=== PATIENT | female | born 1950 | race Caucasian/White ===

== ENCOUNTER 2022-05-21 14:56 | Outpatient (CLI) | payer MEDICARE, BC, SELFPAY | END 2022-05-21 14:57 | disposition home or self-care (01) | LOC: NFLDREF 14:56 | PROVIDERS: PCP Internal Medicine; Visit Provider Family Medicine | DX: R39.9 Unspecified symptoms and signs involving the genitourinary system (principal); N39.0 Urinary tract infection, site not specified; R39.89 Other symptoms and signs involving the genitourinary system | CPT/HCPCS: 87086; 87186 ==

== ENCOUNTER 2022-06-25 07:35 | Outpatient (CLI) | payer MEDICARE, BC, SELFPAY ==
[2022-06-25 14:04] LABS: Chloride* 105 mmol/L (96-114); Potassium* 4.2 mmol/L (3.6-5.1); Sodium* 139 mmol/L (135-149)
[2022-06-25 14:06] LABS: Bilirubin Total* 0.5 mg/dL (0.1-1.5); Carbon Dioxide* 30 mmol/L (20-32); Cholesterol* 165 mg/dL (90-199); Creatinine* 0.6 mg/dL (0.5-1.5); Estimated Glomerular Filt Rate 96 ml/min; Total Protein* 6.4 g/dL (6.0-8.3)
[2022-06-25 14:07] LABS: Alanine Aminotransferase* 17 U/L (4-35); Alkaline Phosphatase* 93 U/L (40-150); Aspartate Amino Transferase* 26 U/L (12-35); Blood Urea Nitrogen* 11 mg/dL (7-30); Calcium* 8.9 mg/dL (8.4-10.6); Glucose* 159 mg/dL (60-115); HDL Cholesterol* 62 mg/dL (>=50); LDL Cholesterol Calculated 86 mg/dL (<100); Triglycerides* 86 mg/dL (40-149)
== END 2022-06-25 07:36 | disposition home or self-care (01) ==
PROVIDERS: PCP Internal Medicine; Visit Provider Internal Medicine
DX: E11.9 Type 2 diabetes mellitus without complications (principal); E78.5 Hyperlipidemia, unspecified
CPT/HCPCS: 80053; 80061

== ENCOUNTER 2022-07-23 15:01 | Outpatient (CLI) | payer MEDICARE, BC, SELFPAY ==
--- NOTE | 2022-07-23 15:20 | CRLHL7_ITS ---
For Patients: As a result of the Century Cures Act, medical imaging exams and procedure reports are released immediately into your electronic medical record. You may view this report before your referring provider. If you have questions, please contact your health care provider. BILATERAL SCREENING MAMMOGRAM WITH COMPUTER-AIDED DETECTION AND TOMOSYNTHESIS TECHNIQUE: CC and MLO views were obtained. These mammographic images have been obtained using full-field digital technique. These mammographic images were interpreted with the benefit of computer-aided detection. Breast Tomosynthesis was used in this interpretation. COMPARISON FILM: 07/22/21, 08/06/20, 07/25/19. FINDINGS: There are scattered areas of fibroglandular density IMPRESSION: There is no radiographic evidence for malignancy. ASSESSMENT: BI-RADS Category 1: Negative RECOMMENDATION: Routine screening mammogram in 1 year. A lay language report of this examination will be provided to the patient. Drake Wiggins M.D. Diagnostic Radiologist [email or web address] GENIE/Dictated by: Drake Wiggins MD @ 07/27/2022 9:17:00 AM (Electronically Signed)
== END 2022-07-23 15:02 | disposition home or self-care (01) ==
LOC: MAMMO 15:03
PROVIDERS: PCP Internal Medicine; Visit Provider Internal Medicine
DX: Z12.31 Encounter for screening mammogram for malignant neoplasm of breast (principal)
CPT/HCPCS: 77063; 77067

== ENCOUNTER 2022-07-29 08:02 | Outpatient (CLI) | payer MEDICARE, BC, SELFPAY ==
--- OUTSIDE RECORDS SUMMARY | 2022-07-29 08:05 | XMS_ITS | Clinical Summary ---
:1950 Author Organization [employer] [facility] [place] [address] Care Team Providers Name Role Phone Mone Cowart MD Primary Care Provider Allergies Active Allergy Reactions Severity Noted Date Comments Sulfa (Sulfonamide Antibiotics) Rash Medium 0 Medications Medication Sig Dispensed Refills Start Date End Date Status simvastatin (ZOCOR) 20 Take 20 mg by 0 Active mg tablet mouth at bedtime. metFORMIN (GLUCOPHAGE) Take 500 mg by 0 Active 500 mg tablet mouth 2 times daily with meals. triamcinolone Apply topically to 0 Active (ARISTOCORT) 0.1 % affected area(s) 2 ointment times daily. estradioL (ESTRACE) Insert 1 g into 0 Active 0.1 mg/g vaginal cream the vagina at bedtime. Cranberry 500 mg cap Take 1,000 mg by 0 Active mouth once daily. aspirin chewable 81 mg Take 81 mg by 0 Active chewable tablet mouth once daily with a meal. calcium Take 1 tablet by 0 Act ashtyn carbonate-cholecalcife mouth once daily rol, 600mg-200 units, with a meal. (CALCIUM 600 + D,3,) tablet atropine (ISOPTO Place 1 Drop into 5 mL 0 08/15/2020 Active ATROPINE) 1 % left eye 2 times ophthalmic solution daily. erythromycin Place 1 Strip of 3.5 g 0 08/15/2020 Active ophthalmic ointment ointment into the 0.5% inside of lower left eye lid at bedtime. ofloxacin 0.3 % Place 1 Drop into 5 mL 0 08/15/2020 Active ophthalmic (OCUFLOX) left eye 4 times 0.3 % ophthalmic daily. solution prednisoLONE acetate Place 1 Drop into 15 mL 0 08/15/2020 Active 1% ophthalmic left eye 4 times (ECONOPRED PLUS, PRED daily. SHAKE WELL. FORTE, OMNIPRED) suspension Active Problems Not on file Social History Tobacco Use Types Packs/Day Years Used Date Never Smoker Smokeless Tobacco: Never Used Alcohol Use Standard Drinks/Week Comments Yes 0 (1 standard drink = 0.6 oz pure occ= a t the most 1 drink a week alcohol) Alcohol Habits Answer Date Recorded How often do you have a drink Not asked containing alcohol? How many drinks containing alcohol do Not asked you have on a typical day when you are drinking? How often do you have six or more Not asked drinks on one occasion? Comment: occ= at the most 1 drink a week 08/13/20 20 Sex Assigned at Date Recorded Not on file Obstetrics History Last Filed Vital Signs Vital Sign Reading Time Taken Comments Blood Pressure 142/73 08/15/2020 9:06 AM CDT Pulse 62 08/15/2020 9:06 AM CDT Temperature 36.1 ??C (97 ??F) 08/15/2020 6:30 AM CDT Respiratory Rate 16 08/15/2020 9:06 AM CDT Oxygen Saturation 97% 08/15/2020 9:06 AM CDT Inhaled Oxygen Concentration - - Weight 77.6 kg (171 lb) 08/13/2020 2:34 PM CDT Height 174 cm (5' 8.5) 08/13/2020 2:34 PM CDT Body Mass Index 25.62 08/13/2020 2:34 PM CDT Plan of Treatment Not on file Results Not on filefrom Last 3 Months Insurance Payer Benefit Plan / Subscriber ID Effective Dates Phone Addre ss Type Group MEDICARE PART A MEDICARE PART A [id number] 2016-Presen ATTN: CLAIMS - HB USE ONLY HB ONLY t [address] [place] [address] MEDICARE PART B MEDICARE PART B [id number] 2016-Presen ATTN: CLAIMS - HB USE ONLY HB ONLY t [address] [place] [address] BLUE CROSS BLUE CROSS OF [id number] 2019-Presen [address] [place], [place] [address] Care Teams Padder Relationship Specialty Start Date End Date Mone Cowart MD PCP - General Internal Medicine 08/06/201999 [place] [address]
--- NOTE | 2022-07-29 08:15 | CRLHL7_ITS ---
For Patients: As a result of the Cures Act, medical imaging exams and procedure reports are released immediately into your electronic medical record. You may view this report before your referring provider. If you have questions, please contact your health care provider. CLINICAL HISTORY: URINARY TRACT INFECTION COMPARISON: none TECHNIQUE: Novak scale and color Doppler images were acquired of the kidneys and urinary bladder. FINDINGS: Sonographic images reveal a symmetric appearance of the kidneys. Mild bilateral hydronephrosis. No solid mass. Simple cyst mid left kidney laterally measuring 3.3 x 3.3 x 3.3 cm. The right kidney measures 10.9cm in length and the left kidney measures 11.8cm in length. The renal cortex appears of normal thickness. The urinary bladder appears normal. Color Doppler images reveal a normal appearance of both ureteral jets. There is no evidence of bladder calculi or diverticula. IMPRESSION: Mild bilateral hydronephrosis. Dictated by Drake Wiggins MD @ 07/29/2022 9:20:34 AM (Electronically Signed)
== END 2022-07-29 08:03 | disposition home or self-care (01) ==
LOC: US 08:04
PROVIDERS: PCP Internal Medicine; Visit Provider Urology
DX: N39.0 Urinary tract infection, site not specified (principal); N13.30 Unspecified hydronephrosis
CPT/HCPCS: 76775

== ENCOUNTER 2022-12-27 07:40 | Outpatient (CLI) | payer MEDICARE, SELFPAY ==
[2022-12-27 09:56] LABS: Creatinine Urine 129.5 mg/dL
[2022-12-27 10:00] LABS: Microalbumin Creatinine Ratio 10 mg/g (0-30); Microalbumin Urine 2 mg/dL
== END 2022-12-27 07:41 | disposition home or self-care (01) ==
PROVIDERS: PCP Internal Medicine; Visit Provider Internal Medicine
DX: E11.9 Type 2 diabetes mellitus without complications (principal); E78.5 Hyperlipidemia, unspecified
CPT/HCPCS: 82043; 82570

== ENCOUNTER 2023-07-28 14:49 | Outpatient (CLI) | payer MEDICARE, SELFPAY ==
--- NOTE | 2023-07-28 15:00 | CRLHL7_ITS ---
For Patients: As a result of the Century Cures Act, medical imaging exams and procedure reports are released immediately into your electronic medical record. You may view this report before your referring provider. If you have questions, please contact your health care provider. BILATERAL SCREENING MAMMOGRAM WITH COMPUTER-AIDED DETECTION AND TOMOSYNTHESIS TECHNIQUE: CC and MLO views were obtained. These mammographic images have been obtained using full-field digital technique. These mammographic images were interpreted with the benefit of computer-aided detection. Breast Tomosynthesis was used in this interpretation. COMPARISON FILM: 07/23/22, 07/22/21, 08/06/20. FINDINGS: The breasts are almost entirely fatty IMPRESSION: There is no radiographic evidence for malignancy. ASSESSMENT: BI-RADS Category 1: Negative RECOMMENDATION: Routine screening mammogram in 1 year. A lay language report of this examination will be provided to the patient. Drake Wiggins M.D. Diagnostic Radiologist [email or web address] GENIE/Dictated by: Drake Wiggins MD @ 07/29/2023 8:48:00 AM (Electronically Signed)
== END 2023-07-28 14:50 | disposition home or self-care (01) ==
LOC: MAMMO 14:50
PROVIDERS: PCP Internal Medicine; Visit Provider Internal Medicine
DX: Z12.31 Encounter for screening mammogram for malignant neoplasm of breast (principal)
CPT/HCPCS: 77063; 77067

== ENCOUNTER 2023-09-30 07:50 | Outpatient (CLI) | payer MEDICARE, SELFPAY | END 2023-09-30 07:51 | disposition home or self-care (01) | LOC: NFLDREF 10-04 23:00 | PROVIDERS: PCP Internal Medicine; Referring Provider Internal Medicine; Visit Provider Internal Medicine | DX: E11.9 Type 2 diabetes mellitus without complications (principal); E78.5 Hyperlipidemia, unspecified; R51.9 Headache, unspecified; R19.7 Diarrhea, unspecified | CPT/HCPCS: 80053; 80061; 82043; 82570 ==

== ENCOUNTER 2023-11-15 19:40 | Outpatient (CLI) | payer MEDICARE, SELFPAY | END 2023-11-15 19:41 | disposition home or self-care (01) | LOC: SLEEP 19:40 | PROVIDERS: PCP Internal Medicine; Visit Provider Internal Medicine | DX: G47.33 Obstructive sleep apnea (adult) (pediatric) (principal); E66.9 Obesity, unspecified | CPT/HCPCS: 95806 ==

== ENCOUNTER 2024-03-26 20:15 | Outpatient (CLI) | payer MEDICARE, SELFPAY ==
--- OUTSIDE RECORDS SUMMARY | 2024-03-26 20:18 | XMS_ITS | Referral Summary ---
Author Name Unknown Organization [facility] Address [address] [place] [address] Care Team Providers Care Skilled Nursing Professional Name Role Phone No Ref-Primary, Physician Primary Care Provider Allergies Active Allergy Reactions Criticality Noted Date Comments Latex 07/26/2000 Sulfa Antibiotics 10/20/1999 Medications Medication Sig Dispensed Refills Start Date End Date Status CEPHALEXIN 500 MG OR CAPSIndications:Sebaceous cyst one bid 20 0 11/06/2007 Active Active Problems Problem Noted Date Diagnosed Date Family history of diabetes mellitus Family history of malignant neoplasm of breast Immunizations Name Administration Dates Next Due TD,PF 7+ (Tenivac) 09/21/1997 TDAP Vaccine (Adacel) 11/06/2007 Social History Tobacco Use Types Packs/Day Years Used Date Smoking Tobacco: Never Alcohol Use Standard Drinks/Week Comments Yes 0.4 (1 standard drink = 0.6 oz p ure alcohol) Adolescent Education Answer Date Record ed Getting School Help Needed Not on file 08/27 Sex and Gender Information Value Date Recorded Sex Assigned at Not on file Gender Identity Not on file Sexual Orientation Not on file Last Filed Vital Signs Vital Sign Reading Time Taken Comments Blood Pressure 126/70 01/30/2022 12:32 PM CONCRETE BLOCK MOLDER Pulse 76 01/30/2022 12:32 PM CONCRETE BLOCK MOLDER Temperature 36.6 ??C (97.8 ??F) 01/30/2022 12:[address] Respiratory Rate 16 01/30/2022 12:32 PM CONCRETE BLOCK MOLDER Oxygen Saturation 99% 01/30/2022 12:32 PM CONCRETE BLOCK MOLDER Inhaled Oxygen Concentration - - Weight 77.3 kg (170 lb 8 oz) 01/30/2022 12:32 PM CONCRETE BLOCK MOLDER Height 170.2 cm (5' 7) 11/15/2007 11:30 AM CONCRETE BLOCK MOLDER Body Mass Index - - Plan of Treatment Not on file Procedures Procedure Name Priority Date/Time Associated Diagnosis Comments C MAMMOGRAM, SCREENING Routine 09/16/2005 11:33 AM CDT SIGMOIDOSCOPY,DIAGN OSTIC Routine 07/05/2000 Rectal & Anal Hemorrhage from Last 3 Months or Most Recently Relevant to Health Maintenance Results * MAMMOGRAM, SCREENING (09/16/2005 11:33 AM CDT) Anatomical Region Laterality Modality Other 09/16/2005 11:3 3 AM CDT Impressions 09/17/2005 7:31 AM CDT SCREENING MAMMOGRAM, BILATERAL BREAST SYMPTOMS: None PREVIOUS MAMMOGRAPHY: Comparison with [facility] dated 06/01/01 and 08/07/04. ??There is no significant change. BREAST PARENCHYMA: ??Heterogeneously dense. IMPRESSION: CATEGORY 1 Negative TECHNOLOGIST INITIALS: SRK Uri Rolon MD SPECIAL IMAGING STUD IES * SIGMOIDOSCOPY,DIAGNOSTIC (07/05/2000) flex BFP RAD Impressions BFP RAD - 07/05/2000 Flex Sig completed to 35 cm, no evidence of tumors,polyps, or other abnormalities. Skyler London MD PROCEDURES BFP RAD from Last 3 Months or Most Recently Relevant to Health Maintenance Care Teams Skilled Nursing Professional Relationship Specialty Start Date End Date No Ref-Primary, Physician PCP - General 01/30/22
--- OUTSIDE RECORDS SUMMARY | 2024-03-26 20:18 | XMS_ITS | Clinical Summary ---
Author Name Unknown Organization [facility] Address [address] [place] [address] Care Team Providers Care Waiter/Waitress Informal Name Role Phone No Ref-Primary, Physician Primary [...] 7+ (Tenivac) 09/21/1997 TDAP Vaccine (Adacel) 11/06/2007 Family History Medical History Relation Comments Diabetes Father Heart Disease Father Cancer Maternal Grandmother breast Alzheimer Disease No family hx of Relation Status Comments Brother 1 Alive Brother 2 Alive Brother 3 Alive Brother 4 Alive Brother 5 Alive Brother 6 Alive Father Alive Maternal Grandmother Mother Alive Sister 1 Alive Sister 2 Alive Sister 3 Alive Sister 4 Alive Sister 5 Alive Social History Tobacco Use Types Packs/Day Years [...] Comments Blood Pressure 126/70 01/30/2022 12:32 PM BLEND TECHNICIAN Pulse 76 01/30/2022 12:32 PM BLEND TECHNICIAN Temperature 36.6 ??C (97.8 ??F) 01/30/2022 12:[address] Respiratory Rate 16 01/30/2022 12:32 PM BLEND TECHNICIAN Oxygen Saturation 99% 01/30/2022 12:32 PM BLEND TECHNICIAN Inhaled Oxygen Concentration - - Weight 77.3 kg (170 lb 8 oz) 01/30/2022 12:32 PM BLEND TECHNICIAN Height 170.2 cm (5' 7) 11/15/2007 11:30 AM BLEND TECHNICIAN Body Mass Index - - Plan of Treatment Health Maintenance Due Date Last Done Comments ADVANCE CARE PLANNING 1950 ANNUAL REVIEW OF HM ORDERS 1950 CT COLONOGRAPHY 1950 DEXA 1950 FIT 1950 GLUCOSE 1950 sDNA (Cologuard) 1950 COLONOSCOPY 1961 HEPATITIS C SCREENING 1969 LIPID 1991 COLORECTAL CANCER SCREENING 07/05/2005 FLEX SIG 07/05/2005 07/05/2000 MAMMO SCREENING 09/16/2007 09/16/2005, 08/07/2004 RSV VACCINE ( & 60+) (1 - 1-dose 60+ series) 2011 FALL RISK ASSESSMENT 01/26/2016 MEDICARE ANNUAL WELLNESS VISIT 01/26/2016 COVID-19 Vaccine ( - season) 2023 10/02/2021, 02/13/2021, 01/16/2021 PHQ-2 (once per calendar year) 2023 INFLUENZA VACCINE (Season Ended) 2024 08/10/2021, 08/12/2020, 09/03/2019, Additional history exists DTAP/TDAP/TD IMMUNIZATION (4 - Td or Tdap) 06/10/2030 06/10/2020, 03/12/2010, 11/06/2007, Additional history exists Pneumococcal Vaccine: 65+ Years Completed 02/03/2017, 02/02/2016 ZOSTER IMMUNIZATION Completed 04/10/2019, 12/19/2018, 06/16/2011 HPV IMMUNIZATION Aged Out No longer e ligible based on patient's age to complete this topic IPV IMMUNIZATION Aged Out No longer e ligible based on patient's age to complete this topic MENINGITIS IMMUNIZATION Aged Out No l onger eligible based on patient's age to complete this topic RSV MONOCLONAL ANTIBODY Aged Out No l onger eligible based on patient's age to complete this topic Procedures Procedure Name Priority Date/Time Associated Diagnosis [...] BREAST SYMPTOMS: None PREVIOUS MAMMOGRAPHY: Comparison with [facility] dated 06/01/01 and 08/07/04. ??There is no [...] Recently Relevant to Health Maintenance Care Teams Waiter/Waitress Informal Relationship Specialty Start Date End Date No Ref-Primary, Physician PCP - General 01/30/22
--- OUTSIDE RECORDS SUMMARY | 2024-03-26 20:18 | XMS_ITS | Clinical Summary ---
Author Name Unknown Organization [facility] Address [place], [place] [address] Care Team Providers Care Home Advisor Name Role Phone Mone Cowart MD Primary Care Provider [phone]- [phone] Allergies Active Allergy Reactions Criticality Noted Date Comments Sulfa (Sulfonamide Antibiotics) Rash Medium 07/23 Medications Medication Sig Dispensed Refills Start Date End Date Status simvastatin (ZOCOR) 20 mg tablet Take 20 mg by mouth at bedtime. Active metFORMIN (GLUCOPHAGE) 500 mg tablet Take 500 mg by mouth 2 times daily with meals. Active triamcinolone (ARISTOCORT) 0.1 % ointment Apply topically to affected area(s) 2 times daily. Active estradioL (ESTRACE) 0.1 mg/g vaginal cream Insert 1 g into the vagina at bedtime. Active Cranberry 500 mg cap Take 1,000 mg by mouth once daily. Active aspirin chewable 81 mg chewable tablet Take 81 mg by mouth once daily with a meal. Active calcium carbonate-cholecalcif jayden, 600mg-200 units, (CALCIUM 600 + D,3,) tablet Take 1 tablet by mouth once daily with a meal. Active atropine (ISOPTO ATROPINE) 1 % ophthalmic solution Place 1 Drop into left eye 2 times daily. 5 mL 08/15/2020 Active erythromycin ophthalmic ointment 0.5% Place 1 Strip of ointment into the inside of lower left eye lid at bedtime. 3.5 g 08/15/2020 Active ofloxacin 0.3 % ophthalmic (OCUFLOX) 0.3 % ophthalmic solution Place 1 Drop into left eye 4 times daily. 5 mL 08/15/2020 Active prednisoLONE acetate 1% ophthalmic (ECONOPRED PLUS, PRED FORTE, OMNIPRED) suspension Place 1 Drop into left eye 4 times daily. SHAKE WELL. 15 mL 08/15/2020 Active Social History Tobacco Use Types Packs/Day Years Used Date Smoking Tobacco: Never Smokeless Tobacco: Never Alcohol Use Standard Drinks/Week Comments Yes 0 (1 standard drink = 0.6 oz pure alcohol) occ= at the most 1 drink a week Sex and Gender Information Value Date Recorded Sex Assigned at Not on file Gender Identity Not on file Sexual Orientation Not on file Obstetrics History Last Filed [...] CDT Plan of Treatment Not on file Care Teams Home Advisor Relationship Specialty Start Date End Date Mone Cowart MD [address] [place] [id number] PCP - General Internal Medicine 08/06/20
== END 2024-03-26 20:16 | disposition home or self-care (01) ==
LOC: SLEEP 20:16
PROVIDERS: PCP Internal Medicine; Visit Provider Internal Medicine
DX: G47.33 Obstructive sleep apnea (adult) (pediatric) (principal)
CPT/HCPCS: 95811

== ENCOUNTER 2024-05-30 17:45 | Outpatient (REF) | payer MEDICARE, SELFPAY ==
--- OUTSIDE RECORDS SUMMARY | 2024-05-30 17:47 | XMS_ITS | Clinical Summary ---
Author Organization [facility] Address [address] [place] [address] Care Team Providers Care Mining Captain Name Role Phone No Ref-Primary, Physician Primary [...] Comments Blood Pressure 126/70 01/30/2022 12:32 PM ORGANISATIONAL PSYCHOLOGIST Pulse 76 01/30/2022 12:32 PM ORGANISATIONAL PSYCHOLOGIST Temperature 36.6 ??C (97.8 ??F) 01/30/2022 12:[address] Respiratory Rate 16 01/30/2022 12:32 PM ORGANISATIONAL PSYCHOLOGIST Oxygen Saturation 99% 01/30/2022 12:32 PM ORGANISATIONAL PSYCHOLOGIST Inhaled Oxygen Concentration - - Weight 77.3 kg (170 lb 8 oz) 01/30/2022 12:32 PM ORGANISATIONAL PSYCHOLOGIST Height 170.2 cm (5' 7) 11/15/2007 11:30 AM ORGANISATIONAL PSYCHOLOGIST Body Mass Index - - Plan of [...] MEDICARE ANNUAL WELLNESS VISIT 01/26/2016 COVID-19 Vaccine (4 - 2022- season) 2023 10/02/2021, 02/13/2021, 01/16/2021 PHQ-2 (once per calendar year) 2023 INFLUENZA VACCINE (#1) 2024 , 08/12/2020, 09/03/2019, Additional history exists DTAP/TDAP/TD IMMUNIZATION [...] BREAST SYMPTOMS: None PREVIOUS MAMMOGRAPHY: Comparison with [facility] dated 06/01/01 and 08/07/04. ??There is no [...] Recently Relevant to Health Maintenance Care Teams Mining Captain Relationship Specialty Start Date End Date No Ref-Primary, Physician PCP - General 01/30/22
--- OUTSIDE RECORDS SUMMARY | 2024-05-30 17:48 | XMS_ITS | Referral Summary ---
Author Organization [facility] Address [address] [place] [address] Care Team Providers Care Wire Stretcher Name Role Phone No Ref-Primary, Physician Primary [...] Comments Blood Pressure 126/70 01/30/2022 12:32 PM FINISHING RANGE FEEDER Pulse 76 01/30/2022 12:32 PM FINISHING RANGE FEEDER Temperature 36.6 ??C (97.8 ??F) 01/30/2022 12:[address] Respiratory Rate 16 01/30/2022 12:32 PM FINISHING RANGE FEEDER Oxygen Saturation 99% 01/30/2022 12:32 PM FINISHING RANGE FEEDER Inhaled Oxygen Concentration - - Weight 77.3 kg (170 lb 8 oz) 01/30/2022 12:32 PM FINISHING RANGE FEEDER Height 170.2 cm (5' 7) 11/15/2007 11:30 AM FINISHING RANGE FEEDER Body Mass Index - - Plan of [...] BREAST SYMPTOMS: None PREVIOUS MAMMOGRAPHY: Comparison with [facility] dated 06/01/01 and 08/07/04. ??There [...] Recently Relevant to Health Maintenance Care Teams Wire Stretcher Relationship Specialty Start Date End Date No Ref-Primary, Physician PCP - General 01/30/22
--- OUTSIDE RECORDS SUMMARY | 2024-05-30 17:48 | XMS_ITS | Clinical Summary ---
Author Organization [facility] Address [place] [address] Care Team Providers Care Supervisor Metal Cans Name Role Phone Mone Cowart MD Primary Care Provider +1- [phone] Allergies Active Allergy Reactions Criticality Noted Date [...] of Treatment Not on file Care Teams Supervisor Metal Cans Relationship Specialty Start Date End Date Mone Cowart MD [address] [place] [address] [phone] (work) PCP - General Internal Medicine 08/06/20
== END 2024-05-30 17:46 | disposition home or self-care (01) ==
LOC: NPINS 17:45
PROVIDERS: PCP Internal Medicine; Visit Provider Urology
DX: N39.0 Urinary tract infection, site not specified (principal)
CPT/HCPCS: 87077; 87086; 87186

== ENCOUNTER 2024-09-12 15:01 | Outpatient (CLI) | payer MEDICARE, SELFPAY ==
--- OUTSIDE RECORDS SUMMARY | 2024-09-12 15:06 | XMS_ITS | Referral Summary ---
Author Organization [facility] Address [address] [place] [address] Care Team Providers Care Order Filler Name Role Phone No Ref-Primary, Physician Primary Care Provider Allergies Active Allergy Reactions Criticality Noted Date Comments Latex 07/26/2000 Sulfa Antibiotics 10/20/1999 Medications CEPHALEXIN 500 MG OR CAPSIndications: Sebaceous cyst one bid 20 0 11/06/2007 Active [...] School Help Needed Not on file 08/27 Comments No Sex and Gender Information Value Date Recorded Sex Assigned at Not on file Legal Sex Female 2:58 AM PROOFSHEET CORRECTOR Gender Identity Not on file Sexual Orientation Not on file 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 file Not on file Not on file Last Filed Vital Signs Vital Sign Reading Time Taken Comments Blood Pressure 126/70 01/30/2022 12:32 PM PROOFSHEET CORRECTOR Pulse 76 01/30/2022 12:32 PM PROOFSHEET CORRECTOR Temperature 36.6 ??C (97.8 ??F) 01/30/2022 12:[address] Respiratory Rate 16 01/30/2022 12:32 PM PROOFSHEET CORRECTOR Oxygen Saturation 99% 01/30/2022 12:32 PM PROOFSHEET CORRECTOR Inhaled Oxygen Concentration - - Weight 77.3 kg (170 lb 8 oz) 01/30/2022 12:32 PM PROOFSHEET CORRECTOR Height 170.2 cm (5' 7) 11/15/2007 11:30 AM PROOFSHEET CORRECTOR Body Mass Index - - Plan of [...] BREAST SYMPTOMS: None PREVIOUS MAMMOGRAPHY: Comparison with [facility] dated 06/01/01 and 08/07/04. ??There is no significant change. BREAST PARENCHYMA: ??Heterogeneously dense. IMPRESSION: CATEGORY 1 Negative TECHNOLOGIST INITIALS: SRK us Uri Rolon MD SPECIAL IMAGING STUDIES Edite d * SIGMOIDOSCOPY,DIAGNOSTIC (07/05/2000) flex BFP RAD Impressions BF RAD - 07/05/2000 Flex Sig completed to 35 cm, no evidence of tumors,polyps, or other abnormalities. us Skyler London MD PROCEDURES Final Resu lt BFP RAD from Last 3 Months or Most Recently Relevant to Health Maintenance Insurance [place]ARE [place] Care Teams Order Filler Relationship Specialty Start Date End Date No Ref-Primary, Physician PCP - General 01/30/22
--- OUTSIDE RECORDS SUMMARY | 2024-09-12 15:06 | XMS_ITS | Clinical Summary ---
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 Not on file Not on file Last Filed Vital Signs Vital Sign Reading Time Taken Comments Blood Pressure 126/70 01/30/2022 12:32 PM CASTING MACHINE ADJUSTER Pulse 76 01/30/2022 12:32 PM CASTING MACHINE ADJUSTER Temperature 36.6 ??C (97.8 ??F) 01/30/2022 12:[address] Respiratory Rate 16 01/30/2022 12:32 PM CASTING MACHINE ADJUSTER Oxygen Saturation 99% 01/30/2022 12:32 PM CASTING MACHINE ADJUSTER Inhaled Oxygen Concentration - - Weight 77.3 kg (170 lb 8 oz) 01/30/2022 12:32 PM CASTING MACHINE ADJUSTER Height 170.2 cm (5' 7) 11/15/2007 11:30 AM CASTING MACHINE ADJUSTER Body Mass Index - - Plan of Treatment Health Maintenance Due Date Last Done Comments ADVANCE CARE PLANNING 1950 ANNUAL REVIEW OF HM ORDERS 1950 CT COLONOGRAPHY 1950 DEXA 1950 FIT 1950 GLUCOSE 1950 sDNA (Cologuard) 1950 COLONOSCOPY 1961 HEPATITIS C SCREENING 1969 LIPID 1991 COLORECTAL CANCER SCREENING 07/05/2005 FLEX SIG 07/05/2005 07/05/2000 MAMMO SCREENING 09/16/2007 09/16/2005, 08/07/2004 FALL RISK ASSESSMENT 01/26/2016 MEDICARE ANNUAL WELLNESS VISIT 01/26/2016 PHQ-2 (once per calendar year) 2023 COVID-19 Vaccine ( - season) 2024 10/02/2021, 02/13/2021, 01/16/2021 INFLUENZA VACCINE (#1) 2024 , 08/12/2020, 09/03/2019, Additional history exists RSV VACCINE (1 - 1-dose 75+ series) 2026 DTAP/TDAP/TD IMMUNIZATION (4 - Td or Tdap) [...] BREAST SYMPTOMS: None PREVIOUS MAMMOGRAPHY: Comparison with [facility] dated 06/01/01 and 08/07/04. ??There is no significant change. BREAST PARENCHYMA: ??Heterogeneously dense. IMPRESSION: CATEGORY 1 Negative TECHNOLOGIST INITIALS: SRK Uri Rolon MD SPECIAL IMAGING STUDIES Edite d * SIGMOIDOSCOPY,DIAGNOSTIC (07/05/2000) flex BFP RAD Impressions BFP RAD - 07/05/2000 Flex Sig completed to 35 cm, no evidence of tumors,polyps, or other abnormalities. us Skyler London MD PROCEDURES Final Resu lt BFP RAD from Last 3 Months or Most Recently Relevant to Health Maintenance Insurance MEDICARE [facility] MEDICARE SUPPLEMENT Care Teams Hand Assembler For Puller Over Relationship Specialty Start Date End Date No Ref-Primary, Physician PCP - General 01/30/22
--- NOTE | 2024-09-12 15:20 | CRLHL7_ITS ---
For Patients: As a result of the Century Cures Act, medical imaging exams and procedure reports are released immediately into your electronic medical record. You may view this report before your referring provider. If you have questions, please contact your health care provider. BILATERAL SCREENING MAMMOGRAM WITH COMPUTER-AIDED DETECTION AND TOMOSYNTHESIS TECHNIQUE: CC and MLO views were obtained. These mammographic images have been obtained using full-field digital technique. These mammographic images were interpreted with the benefit of computer-aided detection. Breast Tomosynthesis was used in this interpretation. COMPARISON FILM: 07/28/23, 07/23/22, 07/22/21. FINDINGS: There are scattered areas of fibroglandular density IMPRESSION: There is no radiographic evidence for malignancy. ASSESSMENT: BI-RADS Category 1: Negative RECOMMENDATION: Routine screening mammogram in 1 year. A lay language report of this examination will be provided to the patient. Drake Wiggins M.D. Diagnostic Radiologist [email or web address] GENIE/Dictated by: Drake Wiggins MD @ 09/14/2024 9:53:00 AM (Electronically Signed)
== END 2024-09-12 15:02 | disposition home or self-care (01) ==
LOC: MAMMO 15:02
PROVIDERS: PCP Internal Medicine; Visit Provider Internal Medicine
DX: Z12.31 Encounter for screening mammogram for malignant neoplasm of breast (principal)
CPT/HCPCS: 77063; 77067

== ENCOUNTER 2024-10-09 07:35 | Outpatient (CLI) | payer MEDICARE, SELFPAY ==
--- OUTSIDE RECORDS SUMMARY | 2024-10-12 21:17 | XMS_ITS | Clinical Summary ---
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 Not on file Not on file Not on file Last Filed Vital Signs Vital Sign Reading Time Taken Comments Blood Pressure 126/70 01/30/2022 12:32 PM WAGE HAND Pulse 76 01/30/2022 12:32 PM WAGE HAND Temperature 36.6 C (97.8 F) 01/30/2022 12:32 PM WAGE HAND Respiratory Rate 16 01/30/2022 12:32 PM WAGE HAND Oxygen Saturation 99% 01/30/2022 12:32 PM WAGE HAND Inhaled Oxygen Concentration - - Weight 77.3 kg (170 lb 8 oz) 01/30/2022 12:32 PM WAGE HAND Height 170.2 cm (5' 7) 11/15/2007 11:30 AM WAGE HAND Body Mass Index - - Plan of [...] BREAST SYMPTOMS: None PREVIOUS MAMMOGRAPHY: Comparison with [facility] dated 06/01/01 and 08/07/04. There is no significant change. BREAST PARENCHYMA: Heterogeneously dense. IMPRESSION: CATEGORY 1 Negative TECHNOLOGIST INITIALS: SRK Uri Rolon MD SPECIAL IMAGING STUDIES Edite d * SIGMOIDOSCOPY,DIAGNOSTIC (07/05/2000) flex [facility] RAD Impressions [facility] - 07/05/2000 Flex Sig completed to 35 cm, no evidence of tumors,polyps, or other abnormalities. us Skyler London MD PROCEDURES Final Resu lt [facility] from Last 3 Months or Most Recently Relevant to Health Maintenance Insurance MEDICARE [facility] MEDICARE SUPPLEMENT Care Teams Air Duct Mechanic Relationship Specialty Start Date End Date No Ref-Primary, Physician PCP - General 01/30/22
--- OUTSIDE RECORDS SUMMARY | 2024-10-12 21:17 | XMS_ITS | Referral Summary ---
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 Not on file Not on file Last Filed Vital Signs Vital Sign Reading Time Taken Comments Blood Pressure 126/70 01/30/2022 12:32 PM PROMOTIONS OFFICER Pulse 76 01/30/2022 12:32 PM PROMOTIONS OFFICER Temperature 36.6 C (97.8 F) 01/30/2022 12:32 PM PROMOTIONS OFFICER Respiratory Rate 16 01/30/2022 12:32 PM PROMOTIONS OFFICER Oxygen Saturation 99% 01/30/2022 12:32 PM PROMOTIONS OFFICER Inhaled Oxygen Concentration - - Weight 77.3 kg (170 lb 8 oz) 01/30/2022 12:32 PM PROMOTIONS OFFICER Height 170.2 cm (5' 7) 11/15/2007 11:30 AM PROMOTIONS OFFICER Body Mass Index - - Plan of [...] BREAST SYMPTOMS: None PREVIOUS MAMMOGRAPHY: Comparison with [facility] dated 06/01/01 and 08/07/04. There is no [...] Recently Relevant to Health Maintenance Insurance MEDICARE [facility] MEDICARE SUPPLEMENT Care Teams Power Brake Operator Relationship Specialty Start Date End Date No Ref-Primary, Physician PCP - General 01/30/22
--- OUTSIDE RECORDS SUMMARY | 2024-10-12 21:17 | XMS_ITS | Clinical Summary ---
Author Organization [facility] Address [place], [place] [address] Care Team Providers Care Bait Tier Name Role Phone Mone Cowart MD Primary Care Provider [phone]- [phone] Allergies Active Allergy Reactions Criticality Noted Date [...] 62 08/15/2020 9:06 AM CDT Temperature 36.1 C (97 F) 08/15/2020 6:30 AM CDT Respiratory Rate 16 08/15/2020 9:06 AM CDT Oxygen Saturation 97% 08/15/2020 9:06 AM CDT Inhaled Oxygen Concentration - - Weight 77.6 kg (171 lb) 08/13/2020 2:34 PM CDT Height 174 cm (5' 8.5) 08/13/2020 2:34 PM CDT Body Mass Index 25.62 08/13/2020 2:34 PM CDT Plan of Treatment Not on file Care Teams Bait Tier Relationship Specialty Start Date End Date Mone Cowart MD [address] [place] [address] PCP - General Internal Medicine 08/06/20
== END 2024-10-09 07:36 | disposition home or self-care (01) ==
PROVIDERS: PCP Internal Medicine; Referring Provider Internal Medicine; Visit Provider Internal Medicine
DX: E11.29 Type 2 diabetes mellitus with other diabetic kidney complication (principal); R80.9 Proteinuria, unspecified; E78.5 Hyperlipidemia, unspecified
CPT/HCPCS: 80053; 80061; 82043; 82570

== ENCOUNTER 2025-07-03 22:52 | Outpatient (CLI) | payer MEDICARE, SELFPAY | END 2025-07-03 22:53 | disposition home or self-care (01) | LOC: AMB 07-04 16:11 | PROVIDERS: PCP Internal Medicine; Visit Provider Family Medicine | DX: M54.9 Dorsalgia, unspecified (principal) | CPT/HCPCS: A0425; A0427 ==

== ENCOUNTER 2025-07-03 23:51 | Emergency (ER) | payer MEDICARE, SELFPAY ==
--- NOTE | 2025-07-03 23:52 | CRLHL7_ITS ---
For Patients: As a result of the Century Cures Act, medical imaging exams and procedure reports are released immediately into your electronic medical record. You may view this report before your referring provider. If you have questions, please contact your health care provider. INDICATION: dizziness, shuffling gait per ems. TECHNIQUE: CT head without contrast. COMPARISON: None. FINDINGS: No territorial loss of raymundo-white differentiation. No sign of hemorrhage, mass effect, or hydrocephalus. Moderate diffuse parenchymal volume loss. No midline shift. Basal cisterns are patent. Mild scattered mucosal thickening in the paranasal sinuses. The visualized orbits are grossly unremarkable. No calvarial fractures. IMPRESSION: No acute intracranial hemorrhage or mass effect. Please note that all CT scans at this facility use dose modulation, iterative reconstruction, and/or weight-based dosing when appropriate to reduce radiation dose to as low as reasonably achievable. Dictated by Alvino Guadarrama MD @ 07/04/2025 12:14:06 AM (Electronically Signed)
--- NOTE | 2025-07-03 23:52 | ED.GENADULT ---
HPI - General Adult General Time Seen by Provider: 23:52 <Valencia Guillermo MD - Last Filed: 07/06/25 21:32> Date Seen: 07/03/25 <Valencia Guillermo MD - Last Filed: 07/06/25 21:32> Chief complaint: Dizziness/Vertigo <Valencia Guillermo MD - Last Filed: 07/06/25 21:32> Stated complaint: possible stroke <Valencia Guillermo MD - Last Filed: 07/06/25 21:32> Time Seen by Provider: 07/03/25 23:58 <Valencia Guillermo MD - Last Filed: 07/06/25 21:32> Source: patient, EMS and RN notes reviewed <Valencia Guillermo MD - Last Filed: 07/06/25 21:32> Mode of arrival: EMS <Valencia Guillermo MD - Last Filed: 07/06/25 21:32> Limitations: no limitations <Valencia Guillermo MD - Last Filed: 07/06/25 21:32> History of Present Illness HPI narrative: This 75-year-old female was brought in by EMS on a a stroke code. She called EMS due to back pain. She has a history of back pain but was severe tonight. She had lowered herself to the floor and could not get back up. EMS did get her back up but she was complaining of feeling dizzy and had a shuffling gait. These were not her typical baseline. Her glucose was in the 190s per EMS. Her blood pressures were more elevated, her systolic was 165 just before arrival here and that was 1 of the lowest blood pressures they got. The [place] stroke scale for them was otherwise normal/negative. Patient was met in the hallway, she was alert, interactive, appeared to be in sinus rhythm on their manager cardiac. Hand technical agronomist strength normal, symmetrical facial function. Legs were strapped down on the gurney at this time. She denied spinning sensation, the dizziness did not seem to be vertiginous. Patient did proceed to go to CT scan for noncontrast head CT. Will have them stop with the head CT, have patient come back over to the ER. On my initial survey, no definite gross deficits but have not been able to evaluate her lower extremities. We will be turning over her full workup to oncoming partner as it is change of shift. <Valencia Guillermo MD - Last Filed: 07/06/25 21:32> This 75-year-old female was brought in by EMS on a a stroke code. She called EMS due to back pain. She has a history of back pain but was severe tonight. She had lowered herself to the floor and could not get back up. EMS did get her back up but she was complaining of feeling dizzy and had a shuffling gait. These were not her typical baseline. Her glucose was in the 190s per EMS. Her blood pressures were more elevated, her systolic was 165 just before arrival here and that was 1 of the lowest blood pressures they got. The [place] stroke scale for them was otherwise normal/negative. Patient was met in the hallway, she was alert, interactive, appeared to be in sinus rhythm on their manager cardiac. Hand technical agronomist strength normal, symmetrical facial function. Legs were strapped down on the gurney at this time. She denied spinning sensation, the dizziness did not seem to be vertiginous. Patient did proceed to go to CT scan for noncontrast head CT. Will have them stop with the head CT, have patient come back over to the ER. On my initial survey, no definite gross deficits but have not been able to evaluate her lower extremities. We will be turning over her full workup to oncoming partner as it is change of shift. Dr. Jaquelin Jeff inherited care from outgoing evening shift partner. Patient had recently been brought in by EMS because she called due to back pain. 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 Is not on chronic pain meds. Reports that the pain is in her lower back but is very vague about it she points to a bandlike area across bilateral sides. Denies numbness, tingling or radiculopathy. She tried taking 1 Excedrin tablets about 3 hours prior to arrival with no significant improvement in symptoms. Did not take a reasonable dose of ibuprofen, Tylenol or other similar treatment. Back only began hurting tonight. Reports that she laid down on the floor hoping that that would help her back loosen up but when she did so things seem to tightness more in she had difficulty getting up. Because of her 's medical ill meds, he was not able to help her up fully and they called EMS. EMS reports that she reported dizziness and had a shuffling gait when they got her up therefore they activated a code stroke protocol. She is not experiencing any vision changes, focal weakness, speech changes, confusion or other similar symptoms. She was given Zofran by EMS and reports that she is now currently asymptomatic. Pain is aching in nature, does not radiate. No recent imaging of her back. No recent fever or other illness. Denies dysuria or other ROS times 12 systems at the time of my exam with the exception of low back pain. <Miya Gaines MD - Last Filed: 07/04/25 02:39> Related Data Home medications: Home Medications ?Medication ?Instructions ?Recorded ?Confirmed aspirin 81 mg tablet,delayed 81 mg PO DAILY 05/21/22 07/04/25 release cranberry fruit 1,000 mg capsule 2,000 mg PO QDAY 05/21/22 07/04/25 trimethoprim 100 mg tablet 100 mg PO QDAY 12/30/22 07/04/25 calcium 200 mg (as 1 tab PO BID 03/14/23 07/04/25 citrate)-vitamin D3 6.25 mcg (250 unit) tablet (Citracal-D3 Petites) Previous Rx's ?Medication ?Instructions ?Recorded simvastatin 20 mg tablet 20 mg PO .Bedtime #90 tabs 11/08/24 metformin 1,000 mg tablet 1,000 mg PO BIDWMEAL #180 tabs 03/29/25 estradiol 0.01% (0.1 mg/gram) 0.5 g vaginal 2XW #42.5 grams 04/01/25 vaginal cream (Estrace) triamcinolone acetonide 0.025 % 1 applic topical .twice weekly #45 04/01/25 topical ointment grams ketorolac 10 mg tablet 10 mg PO Q8H PRN pain 3 days #9 07/04/25 tabs ondansetron 4 mg disintegrating 4 mg PO Q8H PRN nausea and 07/04/25 tablet vomiting #10 tabs <Valencia Guillermo MD - Last Filed: 07/06/25 21:32> Allergies/adverse reactions: Allergies Allergy/AdvReac Type Severity Reaction Status Date / Time Sulfa drugs Allergy Mild rash Uncoded 04/22/25 09:06 <Valencia Guillermo MD - Last Filed: 07/06/25 21:32> Review of Systems Narrative: As per HPI. <Valencia Guillermo MD - Last Filed: 07/06/25 21:32> PFSH PFSH Surgical History: Surgical History History of total hip replacement (2017) ?Z96.649 - Presence of unspecified artificial hip joint (ICD-10) History of cholecystectomy (03/12/10) ?Z90.49 - Acquired absence of other specified parts of digestive tract (ICD-10) History of bilateral cataract extraction (2016) ?Z98.41 - Cataract extraction status, right eye (ICD-10) ?Z98.42 - Cataract extraction status, left eye (ICD-10) <Valencia Guillermo MD - Last Filed: 07/06/25 21:32> Family History: Family History Father Colon cancer, Onset Age: 70 <Valencia Guillermo MD - Last Filed: 07/06/25 21:32> Social History: Social History Narrative: Retired. . Nonsmoker. Occasional alcohol use What is your current living situation?: I presently have a place to live Problems where you live: no known problems In the past 12 months, utilities in danger of being shut off: no In past 12 months, lack of transportation kept you from medical appts, meetings, work, or getting things needed for daily living: no In the past 12 mos, have been you worried that your food would run out before you had money to buy more?: never true In the past 12 mos, the food you bought just didn't last and you didn't have money to buy more?: never true Smoking Status: Never smoker Do you use any of these nicotine containing products: None How often do you have a drink containing alcohol: never AUDIT-C Alcohol total score: 0 Non-prescribed substance use: denies use How often does anyone, including family, friends and others, physically hurt you: never How often does anyone, including family, friends and others, insult or talk down to you: never How often does anyone, including family, friends and others, threaten you with harm: never How often does anyone, including family, friends and others, scream or curse at you: never <Valencia Guillermo MD - Last Filed: 07/06/25 21:32> Exam Const: Vital Signs, click to edit/add: Vital Signs - 24 hr 07/04/25 00:17 07/04/25 00:42 07/04/25 00:55 Temperature 98.6 F Pulse Rate 86 86 Pulse Rate [Right Pulse Oximeter] 84 Respiratory Rate 18 18 18 Blood Pressure 167/80 H 180/83 H Blood Pressure [Le ft Upper Arm] 167/80 H Pulse Oximetry 93 91 95 Oxygen Delivery Me thod Room Air 07/04/25 02:25 Temperature 97.5 F L Pulse Rate Pulse Rate [Right Pulse Oximeter] 80 Respiratory Rate 18 Blood Pressure Blood Pressure [Le ft Upper Arm] 177/85 H Pulse Oximetry 96 Oxygen Delivery Me thod Room Air <Valencia Guillermo MD - Last Filed: 07/06/25 21:32> Vital Signs, click to edit/add: Vital Signs - 24 hr 07/04/25 00:17 07/04/25 00:42 07/04/25 00:55 Temperature 98.6 F Pulse Rate 86 86 Pulse Rate [Right Pulse Oximeter] 84 Respiratory Rate 18 18 18 Blood Pressure 167/80 H 180/83 H Blood Pressure [Le ft Upper Arm] 167/80 H Pulse Oximetry 93 91 95 Oxygen Delivery Me thod Room Air 07/04/25 02:25 Temperature 97.5 F L Pulse Rate Pulse Rate [Right Pulse Oximeter] 80 Respiratory Rate 18 Blood Pressure Blood Pressure [Le ft Upper Arm] 177/85 H Pulse Oximetry 96 Oxygen Delivery Me thod Room Air <Miya Gaines MD - Last Filed: 07/04/25 02:39> Documenting provider has reviewed patient's vital signs: yes <MD Adarsh Kay Last Filed: 07/04/25 02:39> Common normals: no apparent distress and alert <MD Adarsh Kay Last Filed: 07/04/25 02:39> General appearance: cooperative and well kempt <MD Adarsh Kay Last Filed: 07/04/25 02:39> HENMT: Common normals: normocephalic, moist oral mucous membranes and oropharynx normal <MD Adarsh Kay Last Filed: 07/04/25 02:39> Head and scalp: normocephalic <MD Adarsh Kay Last Filed: 07/04/25 02:39> Face and sinus: normal facial exam <MD Adarsh Kay Last Filed: 07/04/25 02:39> Mouth: oral and palatal mucosa normal <MD Adarsh Kay Last Filed: 07/04/25 02:39> Throat: posterior oropharynx normal <MD Adarsh Kay Last Filed: 07/04/25 02:39> Eye: Common normals: PERRL, EOMs intact bilaterally and conjunctivae normal <MD Adarsh Kay Last Filed: 07/04/25 02:39> General eye: normal appearance of both eyes <MD Adarsh Kay Last Filed: 07/04/25 02:39> Conjunctiva: conjunctiva(e) normal <MD Adarsh Kay Last Filed: 07/04/25 02:39> Pupil: PERRL <MD Adarsh Kay Last Filed: 07/04/25 02:39> Neck & C-Spine: Common normals: full ROM, no lymphadenopathy and no meningeal signs <MD Adarsh Kay Last Filed: 07/04/25 02:39> General: normal visual inspection <MD Adarsh Kay Last Filed: 07/04/25 02:39> Resp: Common normals: normal respiratory effort, no use of accessory muscles and clear to auscultation bilaterally <MD Adarsh Kay Last Filed: 07/04/25 02:39> Effort & inspection: able to speak in complete sentences <MD Adarsh Kay Last Filed: 07/04/25 02:39> Auscultation: clear to auscultation bilaterally <MD Adarsh Kay Last Filed: 07/04/25 02:39> Cardio: Common normals: regular rate, regular rhythm, S1 normal heart sound, S2 normal heart sound and no murmurs <MD Adarsh Kay Last Filed: 07/04/25 02:39> Rate: regular rate <MD Adarsh Kay Last Filed: 07/04/25 02:39> Rhythm: regular rhythm <MD Adarsh Kay Last Filed: 07/04/25 02:39> Heart sounds: S1 normal and S2 normal <MD Adarsh Kay Last Filed: 07/04/25 02:39> GI: Common normals: Normal to inspection, nondistended, normoactive bowel sounds present, soft to palpation, non-tender, no hepatosplenomegaly and no masses <MD Adarsh Kay Last Filed: 07/04/25 02:39> Palpation: soft and no hepatosplenomegaly <MD Adarsh Kay Last Filed: 07/04/25 02:39> : Common normals: no CVA tenderness <MD Adrash Kay Last Filed: 07/04/25 02:39> Bladder/kidney exam: no CVA tenderness <MD Adarsh Kay Last Filed: 07/04/25 02:39> Back & Pelvis: Common normals: no CVA tenderness, thoracic and lumbar spine normal to inspection, no thoracic nor lumbar tenderness, thoraco-lumbar ROM normal and straight leg raise negative bilaterally <MD Adarsh Kay Last Filed: 07/04/25 02:39> Extremity: Common normals: normal to inspection, normal capillary refill and no pedal edema <MD Adarsh Kay Last Filed: 07/04/25 02:39> Neuro: [place] Coma Scale: document GCS findings [place] coma scale total score: 15 <Valencia Guillermo MD - Last Filed: 07/06/25 21:32> [place] Coma Scale: document GCS findings [place] coma scale eye opening: Spontaneous (4) [place] coma scale verbal response: Orientated (5) [place] coma scale motor response: Obey commands (6) [place] coma scale total score: 15 <Miya Gaines MD - Last Filed: 07/04/25 02:39> Common normals: CN's II-XII intact bilaterally, moves all extremities and no focal motor deficits <MD Adarsh Kay Last Filed: 07/04/25 02:39> Sensorium/orientation: alert <MD Adarsh Kay Last Filed: 07/04/25 02:39> Meningeal signs: no meningeal signs <MD Adrash Kay Last Filed: 07/04/25 02:39> Speech: speech normal <MD Adarsh Kay Last Filed: 07/04/25 02:39> Motor exam: strength 5/5 throughout, no pronator drift and no tremor noted <MD Adarsh Kay Last Filed: 07/04/25 02:39> Other: Able to pull self up with bed rails and hold self in upright position without difficulty. Normal truncal support. <Miya Gaines MD - Last Filed: 07/04/25 02:39> Psych: Appearance: well kempt <MD Adarsh Kay Last Filed: 07/04/25 02:39> Activity/motor behavior: appropriate eye contact <MD Adarsh Kay Last Filed: 07/04/25 02:39> Mood and affect: euthymic mood <MD Adarsh Kay Last Filed: 07/04/25 02:39> Attention/concentration: attention grossly intact <MD Adarsh Kay Last Filed: 07/04/25 02:39> Memory/cognition: memory grossly intact <MD Adarsh Kay Last Filed: 07/04/25 02:39> Insight: insight good <Miya Gaines MD - Last Filed: 07/04/25 02:39> Judgement: judgment good <Miya Gaines MD - Last Filed: 07/04/25 02:39> Skin: Common normals: no rashes or lesions noted <Miya Gaines MD - Last Filed: 07/04/25 02:39> General skin exam: no rashes or lesions noted <Miya Gaines MD - Last Filed: 07/04/25 02:39> Course Course ED Course: 75-year-old female presenting with low back pain, difficulty getting up off of the floor by EMS and had reported dizziness which triggered a code stroke activation. I have canceled code stroke. CT of the head had already been performed. Thankfully this is negative. Remainder patient's exam is not suspicious for any focal neurological changes and she is asymptomatic to neurological changes. She does still have back pain. Will be given Toradol 15 mg IV x1, 5 mg of Flexeril. I am uncertain of the etiology for her dizziness and nausea will obtain basic labs including lactate, CBC, metabolic panel, CRP and a flu swab. Urinalysis and lumbar spine x-ray. No signs of hypotension or tachycardia that would suggest dehydration or sepsis. Will attempt to ambulate after these interventions and assess clinical response. <Miya Gaines MD - Last Filed: 07/04/25 02:39> Reevaluation(s) Time of Reevaluation #1: 01:27 <Miya Gaines MD - Last Filed: 07/04/25 02:39> Reevaluation #1: Counseled patient on initial findings. She is feeling much better after the Toradol and Flexeril. Back pain is absent. There was some mild hematuria noted on her urinalysis and she did have the back pain and vomiting raising suspicion for possible kidney stone. Lactate was also mildly elevated. That certainly could just be from her metformin as we are not appreciating any other signs of sepsis. 1 L of normal saline was given and we will repeat the lactate at 2:00 a.m.. Am going to get a CT of the abdomen and pelvis just to make sure there is no kidney stone in the setting of her symptoms. <Miya aGines MD - Last Filed: 07/04/25 02:39> Time of Reevaluation #2: 02:38 <Miya Gaines MD - Last Filed: 07/04/25 02:39> Reevaluation #2: Counseled patient on findings. Thankfully CT of the abdomen and pelvis was negative for kidney stone, obstruction or other abnormality. COVID swab is positive. This certainly could explain her muscle aches, weakness and nausea as well. Remainder of workup has seemed benign and she is feeling much better. She is tolerating oral fluids and was given a L of IV fluids with good improvement in her lactate level. She is feeling comfortable with going home. We discussed antiviral medicine and she has received many COVID vaccines, at least for. I do not think that she would benefit from antiviral medicine at this time and she is in agreement. Offered prescription for Zofran as needed for nausea if it returns and some more of the Toradol to use up to 3 times daily for the next 3 days for body and muscle aches. She certainly does have some arthritis in her spine but it does not seem as though that requires emergent treatment. If her back is still very bothersome to her after 5 days, she should follow up with primary care for long-term treatment plan and referral to physical therapy. We also discussed use of Tylenol as needed for pain fever and symptom control as well. Written instructions are provided and she verbalizes understanding and agreement. <Miya Gaines MD - Last Filed: 07/04/25 02:39> Vital Signs Vital signs: Initial Vital Signs Pulse Rate 86 07/04/25 00:17 Respiratory Rate 18 07/04/25 00:17 Blood Pressure 167/80 H 07/04/25 00:17 Blood Pressure Mean 109 H 07/04/25 00:17 Pulse Oximetry 93 07/04/25 00:17 Vital Signs Pulse Rate 86 07/04/25 00:17 Respiratory Rate 18 07/04/25 00:17 Blood Pressure 167/80 H 07/04/25 00:17 Pulse Oximetry 93 07/04/25 00:17 Temperature 97.5 F L 07/04/25 02:25 Pulse Rate 80 07/04/25 02:25 Respiratory Rate 18 07/04/25 02:25 Blood Pressure 177/85 H 07/04/25 02:25 Pulse Oximetry 96 07/04/25 02:25 Oxygen Delivery Method Room Air 07/04/25 02:25 <Valencia Guillermo MD - Last Filed: 07/06/25 21:32> Initial Vital Signs Pulse Rate 86 07/04/25 00:17 Respiratory Rate 18 07/04/25 00:17 Blood Pressure 167/80 H 07/04/25 00:17 Blood Pressure Mean 109 H 07/04/25 00:17 Pulse Oximetry 93 07/04/25 00:17 Vital Signs Pulse Rate 86 07/04/25 00:17 Respiratory Rate 18 07/04/25 00:17 Blood Pressure 167/80 H 07/04/25 00:17 Pulse Oximetry 93 07/04/25 00:17 Temperature 97.5 F L 07/04/25 02:25 Pulse Rate 80 07/04/25 02:25 Respiratory Rate 18 07/04/25 02:25 Blood Pressure 177/85 H 07/04/25 02:25 Pulse Oximetry 96 07/04/25 02:25 Oxygen Delivery Method Room Air 07/04/25 02:25 <Miya Gaines MD - Last Filed: 07/04/25 02:39> Medications Administered Medications: Discontinued Medications Generic Name Dose Route Start Last Admin Trade Name Freq PRN Reason Stop Dose Admin Cyclobenzaprine HCl 5 mg 07/04/25 00:22 07/04/25 00:33 Cyclobenzaprine Hcl 10 Mg Tablet PO 07/04/25 00:23 5 mg ONCE ONE Administration Sodium Chloride 1,000 mls @ 500 mls/hr 07/04/25 00:34 07/04/25 02:07 0.9 % Sodium Chloride 1000 Ml IV 07/04/25 02:33 Infused .Q2H JESSICA Infusion Ketorolac Tromethamine 15 mg 07/04/25 00:22 07/04/25 00:34 Ketorolac 15 Mg/Ml Inj IVP 07/04/25 00:23 15 mg ONCE ONE Administration <Valencia Guillermo MD - Last Filed: 07/06/25 21:32> Discontinued Medications Generic Name Dose Route Start Last Admin Trade Name Freq PRN Reason Stop Dose Admin Cyclobenzaprine HCl 5 mg 07/04/25 00:22 07/04/25 00:33 Cyclobenzaprine Hcl 10 Mg Tablet PO 07/04/25 00:23 5 mg ONCE ONE Administration Sodium Chloride 1,000 mls @ 500 mls/hr 07/04/25 00:34 07/04/25 02:07 0.9 % Sodium Chloride 1000 Ml IV 07/04/25 02:33 Infused .Q2H JESSICA Infusion Ketorolac Tromethamine 15 mg 07/04/25 00:22 07/04/25 00:34 Ketorolac 15 Mg/Ml Inj IVP 07/04/25 00:23 15 mg ONCE ONE Administration <Miya Gaines MD - Last Filed: 07/04/25 02:39> Medical Decision Making Lab Data Lab results reviewed: Yes I reviewed the patient's lab results <Miya Gaines MD - Last Filed: 07/04/25 02:39> Lab results narrative: Mild elevation in lactate and mild leukocytosis noted. Some mild hematuria noted on urinalysis but no obvious signs of infection. COVID is positive. <Miya Gaines MD - Last Filed: 07/04/25 02:39> Labs: Lab Results 07/04/25 07/04/25 07/04/25 Range/Units 00:05 00:37 02:03 WBC 12.84 H (4.50-11.00) K/uL RBC 3.72 L (4.00-5.20) m/uL Hgb 11.5 L (12.0-16.0) gm/dL Hct 35.1 (33.0-51.0) % MCV 94 (80-100) fL MCH 31 (26-34) pg MCHC 33 (32-36) gm/dL RDW Coeff of Sofi 13.5 (11.5-15.5) % Plt Count 186 (140-440) K/uL Neut % (Auto) 88.6 H (42.0-72.0) % Lymph % (Auto) 5.1 L (20-44) % [place] % (Auto) 4.5 (0.0-11.0) % Eos % (Auto) 0.2 (0.0-7.0) % Baso % (Auto) 0.2 (0.0-3.0) % Neut # (Auto) 11.40 H (1.7-7.0) K/uL Lymph # (Auto) 0.70 L (0.90-2.90) K/uL [place] # (Auto) 0.60 (0.00-0.90) K/UL Eos # (Auto) 0.00 (0.00-0.50) K/uL Baso # (Auto) 0.00 (0.00-0.30) K/uL Abs Immat Gran (auto) 0.20 (0.00-0.30) K/uL Imm/Tot Granulo (auto) 1.4 % Sodium 135 (135-149) mmol/L Potassium 4.3 (3.6-5.1) mmol/L Chloride 103 (96-114) mmol/L Carbon Dioxide 22 (20-32) mmol/L Anion Gap 10 (7-15) mEq/L BUN 20 (7-30) mg/dL Creatinine 1.1 (0.5-1.5) mg/dL Estimated GFR 53 ml/min Glucose 176 H (60-115) mg/dL Lactate 3.2 H 2.2 H (0.5-1.9) mmol/L Calcium 9.4 (8.4-10.6) mg/dL Total Bilirubin 0.5 (0.1-1.5) mg/dL AST 31 (12-35) U/L ALT 23 (4-35) U/L Alkaline Phosphatase 76 (40-150) U/L C-Reactive Protein 1.0 (0.5-1.0) mg/dL Total Protein 6.7 (6.0-8.3) g/dL Albumin 4.2 (3.3-5.0) g/dL Urine Color Yellow (Yellow) Urine Appearance Clear (Clear) Urine pH 6.0 (5.0-8.5) Ur Specific [place] 1.025 (1.000-1.030) Urine Protein Trace A (Negative) Urine Glucose (UA) Negative (Negative) Urine Ketones 1+ A (Negative) Urine Blood Trace-intact A (Negative) Urine Nitrite Negative (Negative) Urine Bilirubin Negative (Negative) Urine Urobilinogen 0.2 (0.2-1.0) Ur Leukocyte Esterase Negative (Negative) Urine RBC 2-5 A (0-2) Urine WBC 0-2 (0-5) Ur Squamous Epith Cells Few (None-Few) Urine Bacteria Few A (None) SARS-CoV-2 (PCR) POSITIVE SARS-CoV-2 A (Negative) Influenza Type A (PCR) Negative PCR FLU A (Negative) Influenza Type B (PCR) Negative PCR FLU B (Negative) RSV (PCR) Negative PCR RSV (Negative) <Valencia Guillermo MD - Last Filed: 07/06/25 21:32> Lab Results 07/04/25 07/04/25 07/04/25 Range/Units 00:05 00:37 02:03 WBC 12.84 H (4.50-11.00) K/uL RBC 3.72 L (4.00-5.20) m/uL Hgb 11.5 L (12.0-16.0) gm/dL Hct 35.1 (33.0-51.0) % MCV 94 (80-100) fL MCH 31 (26-34) pg MCHC 33 (32-36) gm/dL RDW Coeff of Sofi 13.5 (11.5-15.5) % Plt Count 186 (140-440) K/uL Neut % (Auto) 88.6 H (42.0-72.0) % Lymph % (Auto) 5.1 L (20-44) % [place] % (Auto) 4.5 (0.0-11.0) % Eos % (Auto) 0.2 (0.0-7.0) % Baso % (Auto) 0.2 (0.0-3.0) % Neut # (Auto) 11.40 H (1.7-7.0) K/uL Lymph # (Auto) 0.70 L (0.90-2.90) K/uL [place] # (Auto) 0.60 (0.00-0.90) K/UL Eos # (Auto) 0.00 (0.00-0.50) K/uL Baso # (Auto) 0.00 (0.00-0.30) K/uL Abs Immat Gran (auto) 0.20 (0.00-0.30) K/uL Imm/Tot Granulo (auto) 1.4 % Sodium 135 (135-149) mmol/L Potassium 4.3 (3.6-5.1) mmol/L Chloride 103 (96-114) mmol/L Carbon Dioxide 22 (20-32) mmol/L Anion Gap 10 (7-15) mEq/L BUN 20 (7-30) mg/dL Creatinine 1.1 (0.5-1.5) mg/dL Estimated GFR 53 ml/min Glucose 176 H (60-115) mg/dL Lactate 3.2 H 2.2 H (0.5-1.9) mmol/L Calcium 9.4 (8.4-10.6) mg/dL Total Bilirubin 0.5 (0.1-1.5) mg/dL AST 31 (12-35) U/L ALT 23 (4-35) U/L Alkaline Phosphatase 76 (40-150) U/L C-Reactive Protein 1.0 (0.5-1.0) mg/dL Total Protein 6.7 (6.0-8.3) g/dL Albumin 4.2 (3.3-5.0) g/dL Urine Color Yellow (Yellow) Urine Appearance Clear (Clear) Urine pH 6.0 (5.0-8.5) Ur Specific [place] 1.025 (1.000-1.030) Urine Protein Trace A (Negative) Urine Glucose (UA) Negative (Negative) Urine Ketones 1+ A (Negative) Urine Blood Trace-intact A (Negative) Urine Nitrite Negative (Negative) Urine Bilirubin Negative (Negative) Urine Urobilinogen 0.2 (0.2-1.0) Ur Leukocyte Esterase Negative (Negative) Urine RBC 2-5 A (0-2) Urine WBC 0-2 (0-5) Ur Squamous Epith Cells Few (None-Few) Urine Bacteria Few A (None) SARS-CoV-2 (PCR) POSITIVE SARS-CoV-2 A (Negative) Influenza Type A (PCR) Negative PCR FLU A (Negative) Influenza Type B (PCR) Negative PCR FLU B (Negative) RSV (PCR) Negative PCR RSV (Negative) <Miya Gaines MD - Last Filed: 07/04/25 02:39> Imaging Data CT scan - head: Attestation: I have reviewed the pertinent imaging results. <Miya Gaines MD - Last Filed: 07/04/25 02:39> My impression: Some mild degenerative changes but no signs of acute hemorrhage, mass effect, trauma. <Miya Gaines MD - Last Filed: 07/04/25 02:39> Radiologist's impression: IMPRESSION: No acute intracranial hemorrhage or mass effect. Please note that all CT scans at this facility use dose modulation, iterative reconstruction, and/or weight-based dosing when appropriate to reduce radiation dose to as low as reasonably achievable. Dictated by Alvino Guadarrama MD @ 07/04/2025 12:14:06 AM <Miya Gaines MD - Last Filed: 07/04/25 02:39> Lumbar x-ray: Attestation: I have reviewed the pertinent imaging results. <Miya Gaines MD - Last Filed: 07/04/25 02:39> My impression: Significant degenerative changes especially at L5/S1 without any sign of obvious new fracture <Miya Gaines MD - Last Filed: 07/04/25 02:39> Radiologist's impression: IMPRESSION: Moderate multilevel lumbar spondylosis with degenerative grade 1 anterolisthesis of L5 on S1. No acute bony abnormality. Dictated by Cyrus Vences MD @ 07/04/2025 1:15:59 AM <Miya Gaines MD - Last Filed: 07/04/25 02:39> CT scan - abdomen: Attestation: I have reviewed the pertinent imaging results. <Miya Gaines MD - Last Filed: 07/04/25 02:39> My impression: No kidney stone or urinary obstruction <Miya Gaines MD - Last Filed: 07/04/25 02:39> Radiologist's impression: IMPRESSION: 1. No urolith or evidence of obstructive uropathy. 2. No acute findings within the abdomen and pelvis. 3. Hepatic steatosis. <Miya Gaines MD - Last Filed: 07/04/25 02:39> Discharge Plan Discharge Clinical Impression: COVID, Localized osteoarthritis of lumbar spine <Valencia Guillermo MD - Last Filed: 07/06/25 21:32> Patient Disposition: Home w/ Parent or Adult <Valencia Guillermo MD - Last Filed: 07/06/25 21:32> Condition: Improved <Valencia Guillermo MD - Last Filed: 07/06/25 21:32> Instructions: COVID-19 (Coronavirus Disease 2019) (ED) <Valencia Guillermo MD - Last Filed: 07/06/25 21:32> Additional Instructions: As we discussed, I think that the weakness, nausea and achiness that you are experiencing is a result of COVID. Your swabs were positive today. Thank you for keeping up with your vaccines. This is likely why your breathing and other organ systems are doing so well even though you have this virus. There are no signs of kidney stones, major infection. You did have some mild dehydration and were given IV fluids. I am glad that the Zofran was helpful for your nausea. I have given you a prescription for some more of that anti nausea medicine to use 1 tablet up to every 6 hours as needed. I have also given you a prescription for Toradol which is an anti-inflammatory pain medicine that you may use up to every 8 hours for the next 3 days. You may also use Tylenol 1000 mg up to every 6 hours for discomfort as well. You should expect some mild headache, mild nausea, general weakness for the next 5 days. Symptoms will gradually improve. I do not recommend antiviral medicine for you. You should return to the emergency department if you have severe weakness, significant worsening of symptoms or other new severe symptoms. Do not take your metformin today, but you may restart it on Tuesday. <Valencia Guillermo MD - Last Filed: 07/06/25 21:32> Activity Level: Activity as Tolerated <Valencia Guillermo MD - Last Filed: 07/06/25 21:32> Activity as Tolerated <Miya Gaines MD - Last Filed: 07/04/25 02:39> Discharge Diet: Regular <Valencia Guillermo MD - Last Filed: 07/06/25 21:32> Regular <Miya Gaines MD - Last Filed: 07/04/25 02:39> Prescriptions: New ondansetron 4 mg tablet,disintegrating 4 mg PO Q8H PRN (Reason: nausea and vomiting) Qty: 10 0RF ketorolac 10 mg tablet 10 mg PO Q8H PRN (Reason: pain) 3 Days Qty: 9 0RF No Action aspirin 81 mg tablet,delayed release (DR/EC) 81 mg PO DAILY cranberry fruit 1,000 mg capsule 2,000 mg PO QDAY Rx Instructions: administer with a meal calcium citrate-vitamin D3 [Citracal-D3 Petites] 200 mg-6.25 mcg (250 unit) tablet 1 tab PO BID triamcinolone acetonide 0.025 % ointment 1 applic topical .twice weekly Qty: 45 3RF estradiol [Estrace] 0.01 % (0.1 mg/gram) cream 0.5 g vaginal 2XW Qty: 42.5 3RF trimethoprim 100 mg tablet 100 mg PO QDAY simvastatin 20 mg tablet 20 mg PO .Bedtime Qty: 90 3RF metformin 1,000 mg tablet 1,000 mg PO BIDWMEAL Qty: 180 0RF <Valencia Guillermo MD - Last Filed: 07/06/25 21:32> Follow Up/Referrals: Mone Cowart MD [Primary Care Provider, Internal Medicine] <Valencia Guillermo MD - Last Filed: 07/06/25 21:32> Stand Alone Forms: [facility] Info Instructions <Valencia Guillermo MD - Last Filed: 07/06/25 21:32>
--- OUTSIDE RECORDS SUMMARY | 2025-07-03 23:52 | XMS_ITS | Clinical Summary ---
Author Organization [facility] Address [address] [place] [address] Care Team Providers Care Flyer Repairer Name Role Phone No Ref-Primary, Physician Primary Care Provider Allergies Active Allergy Reactions Criticality Noted Date Comments Latex 07/26/2000 Sulfa Antibiotics 10/20/1999 Medications CEPHALEXIN 500 MG OR CAPSIndications: Sebaceous cyst one bid 20 0 11/06/2007 Active Active Problems Problem Noted Date Diagnosed Date Family history of diabetes mellitus Family history of malignant neoplasm of breast Immunizations Immunization Administration Dates Next Due TD,PF 7+ (Tenivac) [...] on file Legal Sex Female 2:58 AM COOK'S ASSISTANT Gender Identity Not on file Sexual Orientation Not on file 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 Not on file Not on file Last Filed Vital Signs Vital Sign Reading Time Taken Comments Blood Pressure 126/70 01/30/2022 12:32 PM COOK'S ASSISTANT Pulse 76 01/30/2022 12:32 PM COOK'S ASSISTANT Temperature 36.6 C (97.8 F) 01/30/2022 12:32 PM COOK'S ASSISTANT Respiratory Rate 16 01/30/2022 12:32 PM COOK'S ASSISTANT Oxygen Saturation 99% 01/30/2022 12:32 PM COOK'S ASSISTANT Inhaled Oxygen Concentration - - Weight 77.3 kg (170 lb 8 oz) 01/30/2022 12:32 PM COOK'S ASSISTANT Height 170.2 cm (5' 7) 11/15/2007 11:30 AM COOK'S ASSISTANT Body Mass Index - - Plan of Treatment Not on file Insurance MEDICARE [facility] MEDICARE SUPPLEMENT Care Teams Flyer Repairer Relationship Specialty Start Date End Date No Ref-Primary, Physician PCP - General 01/30/22
--- OUTSIDE RECORDS SUMMARY | 2025-07-03 23:52 | XMS_ITS | Clinical Summary ---
Author Organization [facility] Address [address] [place] [address] Care Team Providers Care Auto Garage Attendant Name Role Phone Mone Cowart MD Primary Care Provider +1- [phone] Allergies Active Allergy Reactions Criticality Noted Date Comments Sulfa (Sulfonamide Antibiotics) Rash Medium 07/23 Medications simvastatin (ZOCOR) 20 mg tablet Take 20 [...] once daily with a meal. Active calcium carbonate-pravin calciferol, 600mg-200 units, (CALCIUM 600 + D,3,) tablet Take 1 tablet by mouth once daily with a meal. Active atropine (ISOPTO ATROPINE) 1 % ophthalmic solution Place 1 Drop into left eye 2 times daily. 5 mL 08/15/2020 9:45 AM CDT 0 Active erythromycin ophthalmic ointment 0.5% Place 1 Strip of ointment into the inside of lower left eye lid at bedtime. 3.5 g 08/15/2020 9:45 AM CDT 0 Active ofloxacin 0.3 % ophthalmic (OCUFLOX) 0.3 % ophthalmic solution Place 1 Drop into left eye 4 times daily. 5 mL 08/15/2020 9:45 AM CDT 0 Active prednisoLONE acetate 1% ophthalmic (ECONOPRED PLUS, PRED FORTE, OMNIPRED) suspension Place 1 Drop into left eye 4 times daily. SHAKE WELL. 15 mL 08/15/2020 9:45 AM CDT 0 Active Social History Tobacco Use Types Packs/Day Years Used Date Smoking Tobacco: Never Smokeless Tobacco: Never Alcohol Use Standard Drinks/Week Comments Yes 0 (1 standard drink = 0.6 oz pure alcohol) occ= at the most 1 drink a week Comments No Sex and Gender Information Value Date Recorded Sex Assigned at Not on file Legal Sex Female 8:36 AM RESIDENT PROGRAMS ASSISTANT Gender Identity Not on file Sexual [...] CDT Plan of Treatment Not on file Insurance MEDICARE PART A HB ONLY MEDICARE PART B HB ONLY [facility] Care Teams Auto Garage Attendant Relationship Specialty Start Date End Date Mone Cowart MD [address] [place] [id number] PCP - General Internal Medicine 08/06/20
[2025-07-04 00:17] VITALS: BP 167/80; PULSE 86; RESP 18; O2SAT 93
--- NOTE | 2025-07-04 00:22 | CRLHL7_ITS ---
For Patients: As a result of the Cures Act, medical imaging exams and procedure reports are released immediately into your electronic medical record. You may view this report before your referring provider. If you have questions, please contact your health care provider. INDICATION: Low back pain. TECHNIQUE: Lumbar spine 3 view. COMPARISON: None. FINDINGS: Five lumbar type vertebral bodies, maintained in height. Mild dextroconvex curvature of the spine. No acute fracture. [id number] multilevel degenerative disc space narrowing, greatest at L5-S1 with marginal osteophyte formation at all levels. Grade 1 anterolisthesis of L5 on S1 secondary to facet arthrosis. Multilevel bilateral facet arthrosis as well as degenerative changes of the spinous processes. No aggressive osseous lesion. Diffuse osteopenia. Left total hip arthroplasty. The soft tissues are unremarkable. IMPRESSION: Moderate multilevel lumbar spondylosis with degenerative grade 1 anterolisthesis of L5 on S1. No acute bony abnormality. Dictated by Cyrus Vences MD @ 07/04/2025 1:15:59 AM (Electronically Signed)
[2025-07-04 00:31] LABS: Lactate* 3.2 mmol/L (0.5-1.9)
--- OUTSIDE RECORDS SUMMARY | 2025-07-04 00:31 | XMS_ITS | Clinical Summary ---
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 Care Teams Buttonhole Marker Relationship Specialty Start Date End Date Mone Cowart MD [address] [place] [id number] PCP - General Internal Medicine 08/06/20
--- OUTSIDE RECORDS SUMMARY | 2025-07-04 00:31 | XMS_ITS | Clinical Summary ---
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 Not on file Not on file Not on file Last Filed Vital Signs Vital Sign Reading Time Taken Comments Blood Pressure 126/70 01/30/2022 12:32 PM MONOGRAM TECHNICIAN Pulse 76 01/30/2022 12:32 PM MONOGRAM TECHNICIAN Temperature 36.6 C (97.8 F) 01/30/2022 12:32 PM MONOGRAM TECHNICIAN Respiratory Rate 16 01/30/2022 12:32 PM MONOGRAM TECHNICIAN Oxygen Saturation 99% 01/30/2022 12:32 PM MONOGRAM TECHNICIAN Inhaled Oxygen Concentration - - Weight 77.3 kg (170 lb 8 oz) 01/30/2022 12:32 PM MONOGRAM TECHNICIAN Height 170.2 cm (5' 7) 11/15/2007 11:30 AM MONOGRAM TECHNICIAN Body Mass Index - - Plan of Treatment Not on file Insurance MEDICARE [facility] MEDICARE SUPPLEMENT Care Teams Bias Cutting Machine Operator Vertical Relationship Specialty Start Date End Date No Ref-Primary, Physician PCP - General 01/30/22
[2025-07-04] MEDS: CYCLOBENZAPRINE HCL 10 MG TABLET 5 MG PO (00:33)
[2025-07-04 00:34] LABS: Hematocrit 35.1 % (33.0-51.0); Hemoglobin* 11.5 gm/dL (12.0-16.0); Immature Granulocytes Abs Auto 0.20 K/uL (0.00-0.30); Immature Granulocytes Pct Auto 1.4 %; Lymphocytes Absolute Auto 0.70 K/uL (0.90-2.90); Mean Corpuscular HGB Conc 33 gm/dL (32-36); Mean Corpuscular Hemoglobin 31 pg (26-34); Mean Corpuscular Volume 94 fL (80-100); RDW Coefficient of Variation % 13.5 % (11.5-15.5); Red Blood Count 3.72 m/uL (4.00-5.20); Slide Review Reflex No; White Blood Count* 12.84 K/uL (4.50-11.00)
[2025-07-04 00:35] LABS: Chloride* 103 mmol/L (96-114)
[2025-07-04 00:36] LABS: Albumin* 4.2 g/dL (3.3-5.0); Potassium* 4.3 mmol/L (3.6-5.1); Sodium* 135 mmol/L (135-149)
[2025-07-04 00:39] LABS: Alanine Aminotransferase* 23 U/L (4-35); Alkaline Phosphatase* 76 U/L (40-150); Anion Gap 10 mEq/L (7-15); Aspartate Amino Transferase* 31 U/L (12-35); Bilirubin Total* 0.5 mg/dL (0.1-1.5); Blood Urea Nitrogen* 20 mg/dL (7-30); Calcium* 9.4 mg/dL (8.4-10.6); Carbon Dioxide* 22 mmol/L (20-32); Creatinine* 1.1 mg/dL (0.5-1.5); Estimated Glomerular Filt Rate 53 ml/min; Glucose* 176 mg/dL (60-115); Total Protein* 6.7 g/dL (6.0-8.3)
[2025-07-04 00:42] VITALS: BP 167/80; PULSE 84; RESP 18; TEMP 37; O2SAT 91; BMI 25.5
[2025-07-04 00:55] VITALS: BP 180/83; PULSE 86; RESP 18; O2SAT 95
[2025-07-04 01:01] LABS: Appearance Urine Clear (Clear)
--- NOTE | 2025-07-04 01:22 | CRLHL7_ITS ---
For Patients: As a result of the Century Cures Act, medical imaging exams and procedure reports are released immediately into your electronic medical record. You may view this report before your referring provider. If you have questions, please contact your health care provider. INDICATION: Hematuria, back pain. TECHNIQUE: CT abdomen and pelvis without contrast. COMPARISON: None. FINDINGS: Lower chest: Unremarkable. Liver: Diffuse fatty infiltration. Normal contour. No suspicious mass. Gallbladder and bile ducts: The gallbladder is absent. No biliary ductal dilatation Pancreas: Fatty atrophy. No mass or inflammation. Spleen: Normal in size. No masses. Adrenal glands: Normal in size. No nodules. Kidneys: Normal in size. Bilateral parapelvic cysts. Left renal cortical cyst. No suspicious masses, stones, or hydronephrosis. GI tract: Unremarkable. Normal in caliber. No sign of mass or inflammation. No evidence for appendicitis. Vasculature: Abdominal aorta is normal in caliber. Lymph nodes: No lymphadenopathy. Peritoneum/Abdominal Wall: Unremarkable. No free air or significant free fluid. Pelvis: Unremarkable. No pelvic masses. Bones: Left total hip arthroplasty. Otherwise, unremarkable for age. IMPRESSION: 1. No urolith or evidence of obstructive uropathy. 2. No acute findings within the abdomen and pelvis. 3. Hepatic steatosis. Please note that all CT scans at this facility use dose modulation, iterative reconstruction, and/or weight-based dosing when appropriate to reduce radiation dose to as low as reasonably achievable. Dictated by Cyrus Vences MD @ 07/04/2025 1:58:24 AM (Electronically Signed)
[2025-07-04 01:36] LABS: PCR FLU A Negative PCR FLU A (Negative); PCR FLU B Negative PCR FLU B (Negative); PCR RSV Negative PCR RSV (Negative); SARS PCR* POSITIVE SARS-CoV-2 (Negative)
[2025-07-04 02:05] LABS: Lactate* 2.2 mmol/L (0.5-1.9)
[2025-07-04 02:25] VITALS: BP 177/85; PULSE 80; RESP 18; TEMP 36.4; O2SAT 96
== END 2025-07-04 03:15 | disposition home or self-care (01) ==
PROVIDERS: Emergency Provider Family Medicine; PCP Internal Medicine
DX: U07.1 COVID-19 (principal); M47.816 Spondylosis without myelopathy or radiculopathy, lumbar region; R31.9 Hematuria, unspecified
CPT/HCPCS: 36415; 70450; 72100; 74176; 80053; 81001; 81003; 83605; 85025; 86140; 87086; 87631; 96361; 96374; 99284; 99285; 99291; A9270; J1885; J7030

== ENCOUNTER 2025-09-16 08:02 | Outpatient (CLI) | payer MEDICARE, SELFPAY ==
--- NOTE | 2025-09-16 08:15 | CRLHL7_ITS ---
For Patients: As a result of the Century Cures Act, medical imaging exams and procedure reports are released immediately into your electronic medical record. You may view this report before your referring provider. If you have questions, please contact your health care provider. INDICATION: BILATERAL SCREENING MAMMOGRAM, ASYMPOMATIC 75 Y/O FEMALE COMPARISON: 09/12/2024, 07/28/2023, 07/23/2022 TECHNIQUE: Digital mammogram in CC and MLO projections including computer-aided detection (CAD) and tomosynthesis. BREAST COMPOSITION: There are scattered areas of fibroglandular density. FINDINGS: No suspicious findings. ASSESSMENT: BI-RADS 1 Negative RECOMMENDATION: Annual screening mammogram. A lay language report of this examination will be provided to the patient. Dictated by: Drake Wiggins MD @ 09/16/2025 09:12:08 (Electronically Signed)
== END 2025-09-16 08:03 | disposition home or self-care (01) ==
LOC: MAMMO 08:03
PROVIDERS: PCP Internal Medicine; Visit Provider Internal Medicine
DX: Z12.31 Encounter for screening mammogram for malignant neoplasm of breast (principal)
CPT/HCPCS: 77063; 77067

== ENCOUNTER 2025-10-16 07:35 | Outpatient (CLI) | payer MEDICARE, SELFPAY | END 2025-10-16 07:36 | disposition home or self-care (01) | LOC: NFLDREF 10-22 06:01 | PROVIDERS: PCP Internal Medicine; Referring Provider Internal Medicine; Visit Provider Internal Medicine | DX: E11.29 Type 2 diabetes mellitus with other diabetic kidney complication (principal); R80.9 Proteinuria, unspecified | CPT/HCPCS: 80053; 80061; 82043; 82570 ==